=== PATIENT | female | born 1965 | race Caucasian/White ===

== ENCOUNTER → 2024-03-09 12:50 | Outpatient (REF) | payer BC, SELFPAY | LOC: RCS 12:50 | PROVIDERS: ATTENDING PHYSICIAN Internal Medicine Cardiovascular Disease; FAMILY PHYSICIAN Internal Medicine | DX: I10 Essential (primary) hypertension (principal) | CPT/HCPCS: 93306 ==

== ENCOUNTER → 2024-03-14 07:05 | Outpatient (REF) | payer BC, SELFPAY | LOC: RAD 07:05 | PROVIDERS: ATTENDING PHYSICIAN Specialist; FAMILY PHYSICIAN Internal Medicine | DX: I99.8 Other disorder of circulatory system (principal) | CPT/HCPCS: 93931 ==

== ENCOUNTER → 2024-12-14 07:44 | Outpatient (REF) | payer BC, SELFPAY | LOC: HWRAD 07:44 | PROVIDERS: ATTENDING PHYSICIAN Specialist; FAMILY PHYSICIAN Internal Medicine | DX: I77.1 Stricture of artery (principal) | CPT/HCPCS: 93975 ==

== ENCOUNTER → 2024-12-18 14:43 | Outpatient (REF) | payer BC, SELFPAY | LOC: HWWDC 14:43 | PROVIDERS: ATTENDING PHYSICIAN Internal Medicine | DX: Z12.31 Encounter for screening mammogram for malignant neoplasm of breast (principal) | CPT/HCPCS: 77063; 77067 ==

== ENCOUNTER 2025-06-14 10:29 | Emergency (ER) | payer BC, SELFPAY ==
[2025-06-14 10:34] VITALS: BP 136/67
--- NOTE | 2025-06-14 10:52 | ED.GENMED ---
History of Present Illness
General
Chief Complaint: Cardiac Symptoms
Time Seen by Provider: 06/14/25 10:52
History of Present Illness
History of Present Illness:
FOCUSED PAST MEDICAL HISTORY
- history of depression, high blood pressure on losartan twice daily
REVIEW OF OLD RECORDS
- I reviewed records, the patient was seen here in the emergency department March 2023 with headache. Echo from 03/09/2024 was normal.
Note:
CHIEF COMPLAINT(S)
Uncomfortable vibration sensation and pain in the left shoulder blade, left eye pain.
HISTORY OF PRESENT ILLNESS
The patient is a 59-year-old female with a history of hypertension, who woke up at 5:30 AM experiencing an uncomfortable vibration and stabbing, throbbing pain in the back of her left shoulder blade. The shoulder blade pain has since resolved. She
does not experience chest tightness or pressure, but she does describe feeling under significant stress due to ongoing personal issues and an impending trip to [place] with her children.
The patient mentions the pain does not worsen with changes in position or movement, such as sitting forward, twisting, or walking. She denies symptoms of sweating, shortness of breath, or exacerbation of symptoms with exertion. There is tenderness
in the left scapular region, but no increased pain with touch or movement.
She recently took Motrin without relief. An electrocardiogram (EKG) was performed and indicated normal results; cardiac blood tests are planned to rule out any cardiac concerns. The physician plans to perform a chest X-ray to further assess her
condition.
PAST MEDICAL AND SURGICAL HISTORY
The patient is on medication for hypertension.
CHRONIC MEDICAL CONDITIONS SIGNIFICANTLY AFFECTING CARE
Hypertension
MEDICATIONS
Losartan 25 mg, taken morning and night for hypertension.
REVIEW OF SYSTEMS
- Cardiovascular: No chest pain, no sweating, no shortness of breath.
- Musculoskeletal: Stabbing, throbbing pain in the left shoulder blade.
- Neurological: Persistent pain in the left eye, no worsening with movement.
- Psychiatric: Reports significant stress.
PHYSICAL EXAM
General: Alert, no acute distress. Appears very comfortable
Skin: Warm, dry.
Head: Normocephalic, atraumatic.
Neck: Supple, trachea midline.
Eye, Ear, Nose, Mouth and Throat: Oral mucosa moist.
Cardiovascular: Normal peripheral perfusion, no edema. No significant chest wall tenderness
Respiratory: Respirations are non-labored.
Gastrointestinal: Abdomen nondistended.
Back: Tenderness in the left periscapular region.
Musculoskeletal: Normal range of motion, normal strength.
Neurological: Alert and oriented to person, place, and time, no focal neurological deficit observed.
Psychiatric: Cooperative, appropriate mood and affect.
PROBLEM LIST
- Acute: Unexplained pain in the left shoulder blade and left eye, possible anxiety-related symptoms.
- Chronic: Hypertension
PLAN
- Perform cardiac blood work to rule out any underlying cardiac issues.
- Order a chest X-ray to assess further.
- Monitor and manage hypertension with current medications.
- Consider stress and anxiety management strategies.
DIFFERENTIAL DIAGNOSIS
The Differential Diagnosis includes, in no particular order and is not limited to:
1. Musculoskeletal pain (e.g., muscle strain)
2. Anxiety or stress-related conditions
3. Cardiovascular issues (unlikely due to normal EKG but will be ruled out with blood work)
4. Herpes zoster (shingles)
5. Cervical radiculopathy
6. Glaucoma or other ocular conditions
7. Sinusitis
8. Tension headache
9. Giant cell arteritis
10. Thoracic outlet syndrome
SUMMARY OF ENCOUNTER
The patient, a 59-year-old female with a history of hypertension, presented to the emergency department with complaints of an uncomfortable vibrating sensation and pain in the left shoulder blade and persistent pain in the left eye. The initial
concern was to rule out any cardiac issues due to the nature of her symptoms. An electrocardiogram (EKG) was performed, and cardiac blood work including troponin levels were drawn and reviewed, which did not indicate a heart attack. A chest X-ray
was also obtained and appeared normal. The patient denies any chest tightness or exacerbation with exertion, suggesting that a cardiovascular event is unlikely. The symptoms could be stress-related. Subsequent CBC confirmed normal results, but there
was an occurrence of hemolysis which required re-testing in the lab. The possibility of stress or anxiety was discussed given her upcoming travel to [place].
DISPOSITION
Discharge.
ASSESSMENT
The patients symptoms do not appear to be cardiac in nature, given the normal EKG, cardiac blood work, and chest X-ray. Anxiety or stress-related conditions are suspected.
PLAN
The patient will be discharged with instructions to follow up with her director index. She has an ongoing appointment with a director index already scheduled.
INDEPENDENT REVIEW OF LABS AND INTERPRETATION OF TESTS
My independent review of the cardiac blood work, including troponin levels, is normal. My independent review of the CBC indicates normal results. My independent interpretation of the chest X-ray shows no abnormalities.
MEDICATION RECONCILIATION
Losartan 25 mg, taken morning and night for hypertension.
MEDICAL DECISION MAKING
-Chronic conditions affecting care: Hypertension, possible anxiety
-Data:
Category 1
Non-emergency department records reviewed.
Category 2
My independent interpretation of the EKG is normal results. My independent interpretation of the chest X-ray shows no abnormalities.
Category 3
Discussion of management with director index, specifically Dr. Lorenzana group regarding follow-up care.
-Risk:
Consideration of Admission/Observation: Escalation of care including admission/observation was considered given the complexity and risk of the patients presenting complaint, exam findings, and underlying comorbidities. However, ultimately I feel the
patient is safe for outpatient management with close follow-up. Reasoning: the work-up is reassuring, does not reveal any acute life/organ-threatening processes, the patients symptoms are well controlled upon reevaluation, reexamination is
reassuring, vitals are stable, patient agreeable with discharge, reliable for follow-up.
DIAGNOSIS
Back and chest pain
Anxiety state, unspecified � ICD-10 Code: F41.9
RADIOLOGY
- Chest x-ray clear; no mediastinal widening
EKG
- Sinus 69, no acute ST abnormality, normal axis normal intervals
LABS
- CBC normal, troponin less than 0.012
Chemistries were attempted to be obtained twice however both times were hemolyzed. Very low suspicion for any chemistry abnormality therefore we will discharge as she has already had 2 draws without success.
Past History
Past History
ED Past Medical History: Psychiatric (Depression)
ED Past Surgical History: Gynecological (Hysterectomy, Tubal ligation)
Social History
Tobacco: Non-smoker
Alcohol: Occasional
Drug: None
Personal:
Living: with family
Employment: Employed
Family History
Family History: Other
Phy Exam
Physical Exam
Physical Exam:
See HPI
Course
Orders/Labs/Results
Orders:
Orders
06/14/25 10:38
Electrocardiogram (*1) Urgent
Reason for Study: Chest Pain
EKG- Treatment ONCE
06/14/25 11:22
Complete Blood Count/With Diff Urgent
Troponin I Urgent
06/14/25 11:27
CR Chest - 2 Views Urgent
Comment:
Reason For Exam: left pain
06/14/25 12:30
Comprehensive Metabolic Panel Urgent
Magnesium Urgent
Abnormal Lab Results
06/14/25
11:22
MCHC 32.9 L g/dL
(33.0-37.0)
06/14/25 11:22
Vital Signs
Initial and Last Documented VS:
Initial Vital Signs
Temp Pulse Resp BP Pulse Ox
36.9 C 75 18 136/67 99
06/14/25 10:34 06/14/25 10:34 06/14/25 10:34 06/14/25 10:34 06/14/25 10:34
Last Documented Vital Signs
Temp Pulse Resp BP Pulse Ox
36.9 C 75 16 133/79 99
06/14/25 10:34 06/14/25 12:15 06/14/25 12:15 06/14/25 12:12 06/14/25 12:15
*Pulse Oximetry
SaO2: 99
Oxygen Mode of Delivery: Room air
Patient hypoxic: no
*Critical Care Note
Total Time (30-74mins, 75-104mins- exclusive of procedures): Not Applicable
ED Attending Note
-
Portions of this chart may have been created with voice recognition software.� Occasional wrong word or��sound alike� substitutions may have occurred due to the inherent limitations of voice recognition software.
Discharge Plan
Departure
Patient Disposition: Home (Routine Discharge)
Date of Disposition: 06/14/25
Time of Disposition: 12:30
Patient with high blood pressure during this ER visit?: Yes
Discharge Problem:
Chest pain
Instructions: Chest Pain DCA Follow Up
Prescriptions:
No Action
amitriptyline
Referrals:
Tammy Miranda MD [Family Provider, Internal Medicine]
Micki Varela DO [Active, Cardiology]
Activity Restrictions/Additional Instructions:
Cardiac blood work and EKG are unremarkable. Complete blood cell count is normal. The cause of your symptoms is unclear but could be related to stress/anxiety. I see no abnormality on the chest x-ray. Follow-up with Dr. Varela.
Interventions
Interventions:
*Risk Screen - Suicide Last Done: 06/14/25 10:34
*General Assessment Last Done: 06/14/25 10:34
*Neglect/Abuse Screening Last Done: 06/14/25 10:34
ED- Pulmonary Assessment Last Done: 06/14/25 11:28
ED- Cardiac Assessment Last Done: 06/14/25 11:28
Discharge Date and Time
Print Language: TUNISIAN
[2025-06-14 11:38] LABS: Hematocrit 41.9 % (37.0-47.0); Hemoglobin 13.8 g/dL (12.0-16.0); Mean Corp Hgb Conc. 32.9 g/dL (33.0-37.0); Mean Corpuscular Volume 88.0 fL (81.0-99.0); Nucleated Red Blood Cells % 0 %; Platelet Count 248 10^3/uL (130-400); Red Cell Dist. Width 13.4 % (11.5-14.5)
[2025-06-14 12:03] LABS: Troponin I < 0.012 ng/ml
[2025-06-14 12:12] VITALS: BP 133/79
== END 2025-06-14 12:46 | disposition home or self-care (01) ==
LOC: EMR 10:29
PROVIDERS: EMERGENCY PHYSICIAN Emergency Medicine; FAMILY PHYSICIAN Internal Medicine
DX: R07.9 Chest pain, unspecified (principal); I10 Essential (primary) hypertension; F32.A Depression, unspecified
CPT/HCPCS: 99284; 71046; 84484; 85025; 93005